=== PATIENT | male | born 1990 | race Caucasian/White ===

== ENCOUNTER 2017-02-03 12:44 | Emergency (ER) | payer OTHER ==
[2017-02-03 13:33] VITALS: RESP 18
--- NOTE | 2017-02-03 13:56 | ED ---
General Adult HPI - General Chief complaint: Psychiatric Symptoms Stated complaint: psych Time Seen by Provider: 02/03/17 13:37 Source: patient, family, RN notes reviewed Mode of arrival: ambulatory Limitations: no limitations - History of Present Illness Initial comments: Patient is a pleasant 26-year-old male presenting to the emergency department for mental health evaluation. Patient has had increased stress recently. Patient originally states he is not depressed however has had several things happen that are upsetting him. Patient has not been sleeping well the past several days. Patient has not had much of an appetite. Patient is hearing chimes or children laughing. Patient sees some spots or shadows at times. Patient does not feel paranoid. Rare alcohol use. Rare marijuana use. No suicidal or homicidal thoughts. No physical complaints. No history of similar symptoms previously. No family history of mental health problems - Related Data Home Medications Medication Instructions Recorded Confirmed No Known Home Medications [No 02/03/17 02/03/17 Known Home Medications] Allergies Allergy/AdvReac Type Severity Reaction Status Date / Time No Known Allergies Allergy Verified 02/03/17 14:09 Review of Systems ROS Statement: Those systems with pertinent positive or pertinent negative responses have been documented in the HPI. ROS Other: All systems not noted in ROS Statement are negative. Constitutional: Denies: fever Eyes: Denies: eye pain ENT: Denies: ear pain Respiratory: Denies: cough Cardiovascular: Denies: chest pain Endocrine: Denies: fatigue Gastrointestinal: Denies: abdominal pain Genitourinary: Denies: dysuria Musculoskeletal: Denies: back pain Skin: Denies: rash Neurological: Denies: weakness Psychiatric: Reports: auditory hallucinations, visual hallucinations Past Medical History Past Medical History: No Reported History History of Any Multi-Drug Resistant Organisms: None Reported Past Surgical History: No Surgical Hx Reported Past Psychological History: No Psychological Hx Reported Smoking Status: Current every day smoker Past Alcohol Use History: Occasional Past Drug Use History: Marijuana General Exam Limitations: no limitations General appearance: alert, in no apparent distress Head exam: Present: atraumatic Eye exam: Present: normal appearance, PERRL ENT exam: Present: normal oropharynx Neck exam: Present: normal inspection Respiratory exam: Present: normal lung sounds bilaterally Cardiovascular Exam: Present: regular rate, normal rhythm GI/Abdominal exam: Present: soft. Absent: tenderness Extremities exam: Present: normal inspection Neurological exam: Present: alert Psychiatric exam: Present: depressed. Absent: homicidal ideation, suicidal ideation Skin exam: Absent: rash Course Vital Signs 02/03/17 13:29 Temperature 98.3 F Pulse Rate 101 H Respiratory 18 Rate Blood Pressure 146/70 O2 Sat by Pulse 100 Oximetry Medical Decision Making - Medical Decision Making Patient was seen by mental health services who will discharge patient and did provide follow-up information. Patient was reevaluated and is comfortable with this. Disposition Clinical Impression: Depression Disposition: HOME SELF-CARE Condition: Stable Instructions: Depression (ED), Stress (ED), Hallucinations (ED) Additional Instructions: Please follow-up with [facility] Sunday as discussed. Please also follow-up with primary care physician. Return for thoughts of harming yourself or others, worsening symptoms or other concerns. Referrals: None,Stated [Primary Care Provider] - 1-2 days Dilip Watson MD [STAFF PHYSICIAN] - 1-2 days Jaime Smith MD [STAFF PHYSICIAN] - 1-2 days Live Brink MD [STAFF PHYSICIAN] - 1-2 days Time of Disposition: 15:18
[2017-02-03 15:46] VITALS: BP 149/77; PULSE 99; TEMP 98.1
== END 2017-02-03 15:46 | disposition home or self-care (01) ==
LOC: EC 12:44
DX: F32.9 Major depressive disorder, single episode, unspecified (principal); F17.200 Nicotine dependence, unspecified, uncomplicated
CPT/HCPCS: 80306; 82075; 99284

== ENCOUNTER 2017-08-06 17:25 | Emergency (ER) | payer OTHER ==
[2017-08-06] MEDS ORDERED: RX INFO: IV CONTRAST WAS GIVEN 1 EACH MISC MISCELLANE PRN (17:34)
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
[2017-08-06 17:53] VITALS: BP 135/83; PULSE 113; RESP 18; TEMP 98
== END 2017-08-06 17:55 | disposition left against medical advice (07) ==
LOC: EC 17:25
DX: R10.9 Unspecified abdominal pain (principal); F17.200 Nicotine dependence, unspecified, uncomplicated; V43.62XA Car passenger injured in collision with other type car in traffic accident, initial encounter; Y92.410 Unspecified street and highway as the place of occurrence of the external cause
CPT/HCPCS: 99284

== ENCOUNTER 2017-10-02 20:20 | Emergency (ER) | payer OTHER ==
[2017-10-02 20:36] VITALS: RESP 18
[2017-10-02] MEDS ORDERED: KETOROLAC 30 MG/ML 1 ML VIAL IM STA (22:34)
--- NOTE | 2017-10-02 22:50 | ED ---
Back Pain HPI - General Chief Complaint: Back Pain/Injury Stated Complaint: slip & fall/blood in urine/back pain Time Seen by Provider: 10/02/17 22:23 Source: patient, RN notes reviewed Limitations: no limitations - History of Present Illness Initial Comments: This is a 27-year-old male who presents to the emergency department with chief complaint of low back injury. Patient states that last night he was walking and slipped on a patch of ice. He states he landed on his back. He denies any head trauma or loss of consciousness. Patient states when he woke up this morning has low back felt stiff. He states he has some pain in the lower region of his back on the left side. He denies any saddle paresthesias or loss of bladder or bowel function. However patient does state that he noticed blood in his urine this morning. Denies fever, chills, chest pain, shortness of breath , abdominal pain, nausea or vomiting, constipation or diarrhea, dysuria, numbness or tingling, headache or vision changes. - Related Data Home Medications Medication Instructions Recorded Confirmed No Known Home Medications [No 02/03/17 10/02/17 Known Home Medications] Allergies Allergy/AdvReac Type Severity Reaction Status Date / Time No Known Allergies Allergy Verified 10/02/17 21:58 Review of Systems ROS Statement: Those systems with pertinent positive or pertinent negative responses have been documented in the HPI. ROS Other: All systems not noted in ROS Statement are negative. Past Medical History Past Medical History: No Reported History History of Any Multi-Drug Resistant Organisms: None Reported Past Surgical History: No Surgical Hx Reported Past Psychological History: Anxiety, Depression Smoking Status: Current every day smoker Past Alcohol Use History: None Reported Past Drug Use History: Marijuana General Exam - General Exam Comments Initial Comments: General: Awake and alert, well-developed; in no apparent distress. HEENT: Head atraumatic, normocephalic. Pupils are equal, round and reactive to light. Extraocular movements intact. Oropharynx moist without erythema or exudate. Neck: Supple. Normal ROM. Cardiovascular: Regular rate and rhythm. No murmurs, rubs or gallops. Chest symmetrical. Respiratory: Lungs clear to auscultation bilaterally. No wheezes, rales or rhonchi. Normal respiratory effort with no use of accessory muscles. Abdomen: Soft, non-tender, non-distended. No rigidity, rebound or guarding. Normal bowel sounds in all 4 quadrants. Back: Patient has normal range of motion. There is tenderness on palpation of left lumbar paraspinal muscles. No SI joint tenderness. Sensation is intact. Pedal pulses are 2+ equal and palpable bilaterally. Musculoskeletal: Normal ROM, no tenderness bilateral upper and lower extremities. Ambulating normally. Skin: [place], warm and dry without rashes or lesions. Neurological: Alert and oriented x3. CN II-XII grossly intact. Speech is fluent and answers are appropriate. No focal neuro deficits. Psychiatric: Normal mood and affect. No overt signs of depression or anxiety noted. Limitations: no limitations Course Vital Signs 10/02/17 10/03/17 20:32 01:17 Temperature 97.6 F 97.9 F Pulse Rate 113 H 77 Respiratory 18 18 Rate Blood Pressure 137/83 113/54 O2 Sat by Pulse 99 97 Oximetry Medical Decision Making - Medical Decision Making This is a 27-year-old male who presented to the emergency department with chief complaint of low back pain. Patient states that he slipped on ice last evening landing on his back. He states that he is experiencing low back pain on the left side. He also states that he had blood in his urine this morning. UA was unremarkable. Lumbar x-ray revealed mild anterior wedging of T12. These findings were discussed with patient and he was in agreement to do further testing with CT of the spine as well as ultrasound of the kidneys and bladder.CT of thoracic and lumbar spine revealed no acute fractures, with mild anterior wedging of T11, T12 and T1 that appear to be nonacute.ultrasound of kidneys and bladder revealed no hydronephrosis or acute abnormalities. Patient will be discharged home with a referral to orthopedics. Findings and plan were discussed with patient who is in agreement and voices understanding. All questions were answered. - Lab Data Lab Results 10/02/17 Range/Units 23:35 Urine Color Light Yellow Urine Appearance Clear (Clear) Urine pH 5.5 (5.0-8.0) Ur Specific [place] 1.006 (1.001-1.035) Urine Protein Negative (Negative) Urine Glucose (UA) Negative (Negative) Urine Ketones Trace H (Negative) Urine Blood Negative (Negative) Urine Nitrite Negative (Negative) Urine Bilirubin Negative (Negative) Urine Urobilinogen <2.0 (<2.0) mg/dL Ur Leukocyte Esterase Negative (Negative) - Radiology Data Radiology results: report reviewed Lumbar spine x-ray impression: Mild anterior wedging of the T12 vertebral body, and perhaps minimal of the L1 vertebral body. Age-indeterminate appearance. Compare to priors if available or could consider CT/MRI CT thoracic, lumbar spine impression: No evidence of acute fracture or malalignment. Minimal anterior wedging of T11, T12 and possibly L1 vertebral bodies may be physiologic. Nonacute. Nonobstructing left renal calculus. Ultrasound kidneys and bladder impression: 1. No hydronephrosis. 2. No stones visualized. Small nonobstructing left renal calculi seen on the recent CT lumbar spine and not identified. Disposition Clinical Impression: Strain of lumbar region, Anterior wedge fracture of vertebra Disposition: HOME SELF-CARE Condition: Good Instructions: Acute Low Back Pain (ED) Additional Instructions: please follow up with orthopedics, Dr. Camarena. Please follow up with primary care provider within 1-2 days. Return to emergency department if symptoms should worsen or any concerns arise. Referrals: None,Stated [Primary Care Provider] - 1-2 days Graeth Camarena MD [STAFF PHYSICIAN] - 1-2 days Time of Disposition: 01:47
--- NOTE | 2017-10-02 23:04 | XR ---
EXAM: XR Lumbar Spine, 2 or 3 Views CLINICAL HISTORY: Reason: fall, lumbar pain TECHNIQUE: Frontal and lateral views of the lumbar spine. COMPARISON: No relevant prior studies available. FINDINGS: Vertebrae: Mild anterior wedging of the T12 vertebral body, and perhaps minimal of the L1 vertebral body. Age indeterminate appearance. Normal alignment. Disc spaces: No acute findings. No significant narrowing. Soft tissues: Unremarkable. IMPRESSION: Mild anterior wedging of the T12 vertebral body, and perhaps minimal of the L1 vertebral body. Age indeterminate appearance. Compare to priors if available or could consider CT/MRI
[2017-10-02 23:55] LABS: Appearance,Urine Clear (Clear); Bilirubin,Urine Negative (Negative); Glucose,Urine (UA) Negative (Negative); Ketones,Urine Trace (Negative); Leukocyte Esterase,Urine Negative (Negative); Nitrite,Urine Negative (Negative); PH, Urine 5.5 (5.0-8.0); Protein,Urine Negative (Negative); Specific Gravity,Urine 1.006 (1.001-1.035); UA Billing (MACRO vs. MICRO) CHEM; Urobilinogen,Urine <2.0 mg/dL (<2.0)
--- NOTE | 2017-10-03 01:06 | CT ---
ADDENDUM - Added by Prateek Mota M.D. on 10/03/2017 1:43 AM (-08:00) Note: Imaging includes T8-L3 vertebral body levels. History: Pain in lower back after falling. Attn: T11-L3. Two nonobstructing left renal calculi. No hydronephrosis. EXAM: CT Lumbar Spine Without Intravenous Contrast CLINICAL HISTORY: Reason: Pain TECHNIQUE: Axial computed tomography images of the lumbar spine without intravenous contrast. CTDI is 18.30 mGy and DLP is 568.20 mGy-cm. This CT exam was performed using one or more of the following dose reduction techniques: automated exposure control, adjustment of the mA and/or kV according to patient size, and/or use of iterative reconstruction technique. COMPARISON: L spine x-ray today. FINDINGS: Vertebrae: Mild anterior wedging of the T11 and T12 vertebral bodies. Nonacute and may be physiologic. Small Schmorl's node associated with inferior, T10, T11 and superior L2 endplates. There may be minimal anterior wedging of the L1 vertebral body. No evidence of acute fracture or malalignment. Discs/spinal canal/neural foramina: No acute findings. No spinal canal stenosis. Soft tissues: Unremarkable. Kidneys and ureters: Nonobstructing left renal calculus IMPRESSION: No evidence acute fracture or malalignment. Minimal anterior wedging of the T11, T12 and possibly L1 vertebral bodies may be physiologic. Nonacute.
[2017-10-03 01:18] VITALS: BP 113/54; PULSE 77; TEMP 97.9
--- NOTE | 2017-10-03 01:41 | US ---
EXAM: US Retroperitoneal Complete, Renal CLINICAL HISTORY: Reason: Pain. LLQ pain hematuria x 1 day TECHNIQUE: Real-time ultrasound of the retroperitoneum (complete) with image documentation. COMPARISON: CT thoracolumbar spine today. FINDINGS: Right kidney: Right kidney 11.1 x 5.1 x 2.5 cm. No stones. No hydronephrosis. Left kidney: Left kidney 11.4 x 6.4 x 5.3 cm. No stones visualized. Small nonobstructing calculi seen on the recent CT L spine not identified. No hydronephrosis. Bladder: Unremarkable as visualized. IMPRESSION: 1. No hydronephrosis. 2. No stones visualized. Small nonobstructing left renal calculi seen on the recent CT L spine not identified
== END 2017-10-03 02:01 | disposition home or self-care (01) ==
LOC: EC 20:20
DX: S22.080A Wedge compression fracture of T11-T12 vertebra, initial encounter for closed fracture (principal); S39.012A Strain of muscle, fascia and tendon of lower back, initial encounter; R31.9 Hematuria, unspecified; F17.200 Nicotine dependence, unspecified, uncomplicated; W00.9XXA Unspecified fall due to ice and snow, initial encounter; Y93.01 Activity, walking, marching and hiking; Y92.89 Other specified places as the place of occurrence of the external cause
CPT/HCPCS: 81003; 87086; 72100; 99283; 96372; J1885; 72128; 72131; 76770

== ENCOUNTER 2017-11-22 03:00 | Emergency (ER) | payer OTHER ==
[2017-11-22] MEDS ORDERED: KETOROLAC 30 MG/ML 1 ML VIAL IVP STA (03:33)
[2017-11-22] MEDS ORDERED: SODIUM CHLORIDE 0.9% 1,000 ML IV STA ×2 (03:33)
[2017-11-22] MEDS ORDERED: ONDANSETRON 4 MG/2 ML VIAL IVP STA (03:33)
[2017-11-22 03:55] LABS: Basophils % (A) 1 %; Eosinophils # (A) 0.1 k/uL (0-0.7); Eosinophils % (A) 2 %; HCT 45.6 % (39.0-53.0); HGB 15.3 gm/dL (13.0-17.5); Lymphocytes # (A) 2.1 k/uL (1.0-4.8); Lymphocytes % (A) 23 %; MCH 30.2 pg (25.0-35.0); MCHC 33.6 g/dL (31.0-37.0); MCV 89.9 fL (80.0-100.0); Mean Platelet Volume 7.1; Monocytes # (A) 0.4 k/uL (0-1.0); Monocytes % (A) 5 %; Neutrophils % (A) 68 %; Platelet Count 243 k/uL (150-450); RBC 5.07 m/uL (4.30-5.90); WBC 8.8 k/uL (3.8-10.6)
[2017-11-22 04:09] LABS: ALT 25 U/L (21-72); AST 13 U/L (17-59); Albumin 4.1 g/dL (3.5-5.0); Alkaline Phosphatase 63 U/L (38-126); Amylase 39 U/L (30-110); Anion Gap 11 mmol/L; Blood Urea Nitrogen 8 mg/dL (9-20); C Reactive Protein <5.0 mg/L (<10.0); Calcium 9.6 mg/dL (8.4-10.2); Carbon Dioxide 25 mmol/L (22-30); Chloride 105 mmol/L (98-107); Glucose 100 mg/dL (74-99); Lipase 31 U/L (23-300); Potassium 3.8 mmol/L (3.5-5.1); Sodium 141 mmol/L (137-145); Total Bilirubin 0.3 mg/dL (0.2-1.3); Total Protein 6.5 g/dL (6.3-8.2)
--- NOTE | 2017-11-22 04:29 | ED ---
Abdominal Pain HPI - General Chief Complaint: Abdominal Pain Stated Complaint: abd pain Time Seen by Provider: 11/22/17 03:24 Source: patient Mode of arrival: ambulatory Limitations: no limitations - History of Present Illness Initial Comments: 27 years old male presenting with diffuse abdominal pain he is unable to point out the most painful area he saying his whole belly hurts been nauseous denies any vomiting and said he has some phlegm denies any fever no chills no diarrhea no constipation and he denies any previous surgeries on his abdomen. Denies any headaches no neck stiffness no chest pain or shortness of breath no signs of any neurological deficit or numbness upper or lower extremities - Related Data Home Medications Medication Instructions Recorded Confirmed No Known Home Medications [No 02/03/17 11/22/17 Known Home Medications] Allergies Allergy/AdvReac Type Severity Reaction Status Date / Time No Known Allergies Allergy Verified 10/02/17 21:58 Review of Systems ROS Statement: Those systems with pertinent positive or pertinent negative responses have been documented in the HPI. ROS Other: All systems not noted in ROS Statement are negative. Past Medical History Past Medical History: No Reported History History of Any Multi-Drug Resistant Organisms: None Reported Past Surgical History: No Surgical Hx Reported Past Psychological History: Anxiety, Depression Smoking Status: Current every day smoker Past Alcohol Use History: Rare Past Drug Use History: Marijuana General Exam - General Exam Comments Initial Comments: General: The patient is awake and alert, in no distress, and does not appear acutely ill. He looks sleepy but GCS is 15 answers questions appropriately Skin: Skin is warm and dry and no rashes or lesions are noted. Eye: Pupils are equal, round and reactive to light, extra-ocular movements are intact; there is normal conjunctiva bilaterally. Ears, nose, mouth and throat: There are moist mucous membranes and no oral lesions. Neck: The neck is supple, there is no tenderness or JVD. Cardiovascular: There is a regular rate and rhythm. No murmur, rub or gallop is appreciated. Respiratory: To auscultation bilateral, no wheezing no rhonchi no distress respiratory stuart noticed Gastrointestinal: Mild slight tenderness all over the abdomen positive bowel sounds no guarding no rebounds no hepatosplenomegaly noticed Back: There is no tenderness to palpation in the midline. There is no obvious deformity. Musculoskeletal: Normal ROM, no tenderness, There is no pedal edema. There is no calf tenderness or swelling. No cords were appreciated. Neurological: CN II-XII intact, Cranial nerves III through XII are intact. There are no obvious motor or sensory deficits. Coordination appears grossly intact. Speech is normal. Psychiatric: Cooperative, appropriate mood & affect, normal judgment. Limitations: no limitations Course Vital Signs 11/22/17 03:17 Temperature 98.6 F Pulse Rate 76 Respiratory 20 Rate Blood Pressure 145/67 O2 Sat by Pulse 99 Oximetry Patient is reassessed at term 5 AM, CBC, CMP, C-reactive protein, KUB are absolutely within normal range these findings were explained to the patient he' ll be discharged home to follow up with his family doctor and is advised to come back if he develops fever chills nausea vomiting or pain gets worse Medical Decision Making - Lab Data Result diagrams: 11/22/17 03:40 11/22/17 03:40 Lab Results 11/22/17 11/22/17 Range/Units 03:40 03:40 WBC 8.8 (3.8-10.6) k/uL RBC 5.07 (4.30-5.90) m/uL Hgb 15.3 (13.0-17.5) gm/dL Hct 45.6 (39.0-53.0) % MCV 89.9 (80.0-100.0) fL MCH 30.2 (25.0-35.0) pg MCHC 33.6 (31.0-37.0) g/dL RDW 13.0 (11.5-15.5) % Plt Count 243 (150-450) k/uL Neutrophils % 68 % Lymphocytes % 23 % Monocytes % 5 % Eosinophils % 2 % Basophils % 1 % Neutrophils # 6.0 (1.3-7.7) k/uL Lymphocytes # 2.1 (1.0-4.8) k/uL Monocytes # 0.4 (0-1.0) k/uL Eosinophils # 0.1 (0-0.7) k/uL Basophils # 0.0 (0-0.2) k/uL Sodium 141 (137-145) mmol/L Potassium 3.8 (3.5-5.1) mmol/L Chloride 105 (98-107) mmol/L Carbon Dioxide 25 (22-30) mmol/L Anion Gap 11 mmol/L BUN 8 L (9-20) mg/dL Creatinine 0.80 (0.66-1.25) mg/dL Est GFR (MDRD) Af Amer >60 (>60 ml/min/1.73 sqM) Est GFR (MDRD) Non-Af >60 (>60 ml/min/1.73 sqM) Glucose 100 H (74-99) mg/dL Calcium 9.6 (8.4-10.2) mg/dL Total Bilirubin 0.3 (0.2-1.3) mg/dL AST 13 L (17-59) U/L ALT 25 (21-72) U/L Alkaline Phosphatase 63 (38-126) U/L C-Reactive Protein <5.0 (<10.0) mg/L Total Protein 6.5 (6.3-8.2) g/dL Albumin 4.1 (3.5-5.0) g/dL Amylase 39 (30-110) U/L Lipase 31 (23-300) U/L Disposition Clinical Impression: Abdominal pain Disposition: HOME SELF-CARE Condition: Good Instructions: Abdominal Pain (ED) Referrals: None,Stated [Primary Care Provider] - 1-2 days
--- NOTE | 2017-11-22 04:58 | XR ---
EXAM: XR Abdomen, 1 View CLINICAL HISTORY: Reason: abdominal pain TECHNIQUE: Frontal supine view of the abdomen/pelvis. COMPARISON: None. FINDINGS: Gastrointestinal tract: Unremarkable. No dilation. Bones/joints: Unremarkable. IMPRESSION: Normal abdominal x-ray.
[2017-11-22 08:14] VITALS: BP 105/49; PULSE 61; RESP 16; TEMP 98.7
== END 2017-11-22 05:43 | disposition home or self-care (01) ==
LOC: EC 03:00
DX: R10.84 Generalized abdominal pain (principal); R40.2412 Glasgow coma scale score 13-15, at arrival to emergency department; R11.0 Nausea; F17.200 Nicotine dependence, unspecified, uncomplicated
CPT/HCPCS: 36415; 80053; 82150; 83690; 85025; 86140; 74018; 99284; 96374; 96375; 96361 ×2; J2405; J1885

== ENCOUNTER 2017-11-22 23:28 | Inpatient (IN) | payer MEDICAID, OTHER ==
[2017-11-23 00:32] LABS: Appearance,Urine Clear (Clear); Bilirubin,Urine Negative (Negative); Blood,Urine Negative (Negative); Color,Urine Yellow; Glucose,Urine (UA) Negative (Negative); Ketones,Urine Trace (Negative); Leukocyte Esterase,Urine Negative (Negative); Nitrite,Urine Negative (Negative); PH, Urine 5.5 (5.0-8.0); Protein,Urine Trace (Negative); Specific Gravity,Urine 1.023 (1.001-1.035)
[2017-11-23 00:45] LABS: Amphetamine Screen,Urine Detected (NotDetected); Barbiturate Screen,Urine Not Detected (NotDetected); Benzodiazepines Screen,Urine Not Detected (NotDetected); Cocaine Screen,Urine Not Detected (NotDetected); Methadone Screen, Urine Not Detected (NotDetected); Opiate Screen,Urine Not Detected (NotDetected); Oxycodone Screen, Urine Not Detected (NotDetected); Phencyclidine Screen,Urine Not Detected (NotDetected); Tricyclic Antidepressant,Urine Not Detected (NotDetected); Urn Cannabinoid Scrn Detected (NotDetected)
[2017-11-23 00:56] LABS: Basophils % (A) 1 %; Eosinophils # (A) 0.2 k/uL (0-0.7); Eosinophils % (A) 2 %; HCT 46.3 % (39.0-53.0); HGB 15.3 gm/dL (13.0-17.5); Lymphocytes # (A) 2.7 k/uL (1.0-4.8); Lymphocytes % (A) 32 %; MCH 30.1 pg (25.0-35.0); MCHC 33.1 g/dL (31.0-37.0); MCV 90.9 fL (80.0-100.0); Mean Platelet Volume 7.1; Monocytes # (A) 0.3 k/uL (0-1.0); Monocytes % (A) 4 %; Neutrophils # (A) 5.1 k/uL (1.3-7.7); Neutrophils % (A) 60 %; Platelet Count 245 k/uL (150-450); RBC 5.09 m/uL (4.30-5.90); RDW 12.9 % (11.5-15.5); WBC 8.5 k/uL (3.8-10.6)
[2017-11-23 01:13] LABS: Anion Gap 9 mmol/L; Blood Urea Nitrogen 7 mg/dL (9-20); C Reactive Protein <5.0 mg/L (<10.0); Calcium 9.4 mg/dL (8.4-10.2); Carbon Dioxide 27 mmol/L (22-30); Chloride 106 mmol/L (98-107); Glucose 92 mg/dL (74-99); Potassium 4.4 mmol/L (3.5-5.1); Sodium 142 mmol/L (137-145)
[2017-11-23] MEDS ORDERED: LORazepam 1 MG TAB PO PRN (03:44)
[2017-11-23] MEDS ORDERED: ACETAMINOPHEN TAB 325 MG TAB PO PRN (03:44)
[2017-11-23] MEDS ORDERED: MAGNESIUM HYDROXIDE 2,400 MG/10 ML CUP PO PRN (03:44)
[2017-11-23] MEDS ORDERED: ZIPRASIDONE 20 MG VIAL IM PRN (03:44)
[2017-11-23] MEDS ORDERED: MAG HYDROX/AL HYDROX/SIMETH 30 ML CUP PO PRN (03:44)
[2017-11-23] MEDS ORDERED: LORazepam 2 MG/ML INJ IM PRN (03:46)
[2017-11-23 04:23] VITALS: BMI 30.3
--- NOTE | 2017-11-23 07:12 | P.PN ---
Progress Note - Text Progress Note Date: 11/23/17 I was notified about new consult around 4 am , nursing staff also added that patient was medicated and currently sleeping in quiet room. I went again to evaluate the patient at 630 am, per nursing staff patient is still sleeping, and medicated and would not be able to provide any meaningful history
[2017-11-23 08:51] LABS: Basophils # (A) 0.1 k/uL (0-0.2); Basophils % (A) 1 %; Eosinophils # (A) 0.2 k/uL (0-0.7); Eosinophils % (A) 3 %; HCT 47.4 % (39.0-53.0); HGB 15.1 gm/dL (13.0-17.5); Lymphocytes # (A) 2.5 k/uL (1.0-4.8); Lymphocytes % (A) 37 %; MCH 29.6 pg (25.0-35.0); MCHC 31.8 g/dL (31.0-37.0); Mean Platelet Volume 7.1; Monocytes # (A) 0.3 k/uL (0-1.0); Monocytes % (A) 4 %; Neutrophils # (A) 3.7 k/uL (1.3-7.7); Neutrophils % (A) 53 %; Platelet Count 240 k/uL (150-450); RBC 5.09 m/uL (4.30-5.90); RDW 13.1 % (11.5-15.5); WBC 6.9 k/uL (3.8-10.6)
[2017-11-23 09:12] LABS: ALT 23 U/L (21-72); AST 13 U/L (17-59); Albumin 3.6 g/dL (3.5-5.0); Alkaline Phosphatase 67 U/L (38-126); Anion Gap 9 mmol/L; Blood Urea Nitrogen 8 mg/dL (9-20); Calcium 9.3 mg/dL (8.4-10.2); Carbon Dioxide 28 mmol/L (22-30); Chloride 107 mmol/L (98-107); Glucose 94 mg/dL (74-99); Potassium 4.1 mmol/L (3.5-5.1); Sodium 144 mmol/L (137-145); Total Bilirubin 0.2 mg/dL (0.2-1.3); Total Protein 5.7 g/dL (6.3-8.2)
[2017-11-23] MEDS: NICOTINE 14MG/24HR PATCH TRANSDERM SCH (09:19)
--- NOTE | 2017-11-23 09:53 | P.HPMEDMHU ---
History of Present Illness H&P Date: 11/23/17 Chief Complaint: Delusions 27 year old male that was brought in by family secondary to delusions, and suicidal ideations. Review of Systems Constitutional: Denies fever, Denies sweats, Denies weakness Ears, nose, mouth and throat: Denies dysphagia, Denies nasal congestion, Denies sinus pressure Cardiovascular: Denies claudication, Denies dyspnea on exertion, Denies orthopnea, Denies rapid heart beat Respiratory: Denies cough, Denies snoring, Denies wheezing Gastrointestinal: Denies BRBPR, Denies coffee ground emesis Musculoskeletal: Denies myalgias, Denies neck stiffness Integumentary: Denies hirsutism, Denies rash Psychiatric: Reports depression, Reports hallucinations, Reports mood swings Hematologic/Lymphatic: Denies easy bruising, Denies lymphadenopathy Allergic/Immunologic: Denies anaphylaxis, Denies urticaria, Denies wheezing Past Medical History Past Medical History: No Reported History Additional Past Medical History / Comment(s): kidney stones History of Any Multi-Drug Resistant Organisms: None Reported Past Surgical History: No Surgical Hx Reported Past Psychological History: Anxiety, Depression Smoking Status: Current every day smoker Past Alcohol Use History: Occasional Past Drug Use History: None Reported Medications and Allergies Home Medications Medication Instructions Recorded Confirmed Type No Known Home Medications [No 02/03/17 11/23/17 History Known Home Medications] Allergies Allergy/AdvReac Type Severity Reaction Status Date / Time No Known Allergies Allergy Verified 11/23/17 04:24 Physical Exam Vitals: Vital Signs Temp Pulse Pulse Resp BP BP Pulse Ox 11/23/17 04:14 98.2 F 94 15 117/80 11/23/17 03:04 97.9 F 82 18 100/54 100 11/22/17 23:32 98.0 F 94 20 160/76 99 Intake and Output 11/22/17 11/23/17 11/23/17 22:59 06:59 14:59 Other: Weight 90.4 kg - EENT Eyes: EOMI, PERRLA - Neck Neck: no lymphadenopathy, normal ROM - Respiratory Respiratory: bilateral: CTA, negative: rales, rhonchi, wheezing - Cardiovascular Heart sounds: normal: S1, S2 - Gastrointestinal General gastrointestinal: normal bowel sounds, no splenomegaly, no tenderness - Neurologic Neurologic: CNII-XII intact - Musculoskeletal Musculoskeletal: gait normal - Psychiatric Psychiatric: A&O x's 3, appropriate affect Cranial Nerve Examination - Cranial Nerves Cranial Nerve II- Optic: Intact Cranial Nerve III- Oculomotor: Intact Cranial Nerve IV- Trochlear: Intact Cranial Nerve V- Trigeminal: Intact Cranial Nerve - Abducens: Intact Cranial Nerve VII- Facial: Intact Cranial Nerve VIII- Auditory: Intact Cranial Nerve IX- Glossopharyngeal: Intact Cranial Nerve X- Vagus: Intact Cranial Nerve XI- Accessory: Intact Cranial Nerve XII- Hypoglossal: Intact Results CBC & Chem 7: 11/23/17 08:28 11/23/17 00:25 Labs: Abnormal Lab Results - Last 24 Hours (Table) 11/22/17 11/23/17 Range/Units 23:50 00:25 BUN 7 L (9-20) mg/dL Urine Protein Trace H (Negative) Urine Ketones Trace H (Negative) Ur Amphetamines Screen Detected H (NotDetected) U Marijuana (THC) Screen Detected H (NotDetected) Assessment and Plan (1) Delusion Current Visit: Yes Status: Acute Code(s): F22 - DELUSIONAL DISORDERS SNOMED Code(s): 8049351 (2) Depression Current Visit: Yes Status: Acute Code(s): F32.9 - MAJOR DEPRESSIVE DISORDER , SINGLE EPISODE, UNSPECIFIED SNOMED Code(s): 57735367
[2017-11-23] MEDS ORDERED: OLANZapine 2.5 MG TAB PO SCH (11:30)
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
[2017-11-23] MEDS ORDERED: OLANZapine ODT 5 MG TAB PO PRN (14:33)
[2017-11-23] MEDS: OLANZapine 5 MG TAB PO SCH (22:24)
[2017-11-23 23:40] LABS: Cholesterol 79 mg/dL (<200); HDL Cholesterol 30 mg/dL (40-60); LDL Cholesterol,Calculated 35 mg/dL (0-99); Triglycerides 70 mg/dL (<150)
[2017-11-24] MEDS: NICOTINE 14MG/24HR PATCH TRANSDERM SCH ×2 (11:21→12:10)
--- NOTE | 2017-11-24 12:38 | P.PN ---
Progress Note - Text interval history: The patient is found in the hallway he follows me to an interview room. He was admitted with acute symptoms of psychosis that are thought to be substance-induced specifically from methamphetamine. He reports using methamphetamine on a nightly basis for an extended period of time. He recognizes he was experiencing hallucinations and paranoid thinking and he states that is resolving. He is experiencing some emotional dysregulation still though. He reports that he slept well last night. He was prescribed Zyprexa 5 mg at bedtime. We discussed the purpose of that medication. Mental status exam: The patient is a male appearing his stated age she is dressed in his own clothing hygiene grooming are adequate. Eye contact is intermittent. He initially maintains a very bland affect for the first part of the session and then experiences a prolonged tearful episode. He states "I put my trust in the wrong people". He then begins speaking about how his life was adversely affected by the of his father. He is reporting no suicidal or homicidal ideation. He is endorsing no current hallucinations he states he feels safe here in the hospital. Insight and judgment limited. He is oriented to person place and date. Plan: We will continue the Zyprexa at bedtime. This will likely be a temporary measure. It appears his symptoms have improved but he is demonstrating some affect lability. He is encouraged to participate in the milieu. He was not open to a discussion regarding treatment for his chemical dependency today. Vital signs reviewed they're within normal limits.
[2017-11-24 13:49] LABS: Hemoglobin A1C 4.7 % (4.0-6.0)
[2017-11-24] MEDS: OLANZapine 5 MG TAB PO SCH (20:58)
[2017-11-25 06:48] VITALS: RESP 18
[2017-11-25] MEDS: NICOTINE 14MG/24HR PATCH TRANSDERM SCH (09:22)
--- NOTE | 2017-11-25 12:29 | P.PN ---
Progress Note - Text Interval history: The patient is found in his room he follows me to an interview room. He has been sleeping most of the morning. It's reported he slept approximate 6 hours last night. He states he is catching up on sleep because "I haven't slept for 6 months" referring to his use of methamphetamine. He continues to comply with medication. He states that family members visited last evening and they were supportive. We discussed the possibility of having him go to inpatient chemical dependency treatment but he states he doesn' t need it as he has the strength to abstain. He is endorsing no hallucinations or delusional thoughts. Mental status exam: The patient is alert he seated calmly he is dressed in his own clothing. He is mildly disheveled. Eye contact is appropriate he is pleasant and cooperative. He is reporting no suicidal or homicidal ideation intent or plan. He is endorsing no auditory or visual hallucinations or any specific delusions. He does not appear to be experiencing symptoms of psychosis during our session. He demonstrates no tangential thinking loose associations or flight of ideas he does not appear hypomanic or manic. Insight and judgment improving. He seems to underestimate the need for formal treatment for his chemical dependency. He demonstrates no verbal or physical aggressiveness. He demonstrates no abnormal involuntary movements. His affect is appropriately expressive including appropriate smiling. Plan: The patient's will continue on the Zyprexa 5 mg at bedtime. This will likely just need to be a temporary measure. He is encouraged to attend some groups. He has been excessively sleeping due to the sleep deficit he built with the use of methamphetamine and because he is not on a stimulant at this time. Vital signs reviewed.
[2017-11-25] MEDS: OLANZapine 5 MG TAB PO SCH (20:29)
[2017-11-26 07:08] VITALS: BP 134/63; PULSE 55; TEMP 97.3
[2017-11-26] MEDS: NICOTINE 14MG/24HR PATCH TRANSDERM SCH (09:41)
--- NOTE | 2017-11-26 12:04 | P.DS ---
Providers Date of admission: 11/23/17 02:40 Expected date of discharge: 11/26/17 Attending physician: Toshia Nolasco MD Consults: 11/23/17 02:49 Consult Physician Routine Consulting Provider: Deedee Rasheed Consult Reason/Comments: medical management Do you want consulting provider notified?: Already Contacted Primary care physician: Stated None Hospital Course: Discharge Diagnosis: Substance-induced psychotic disorder, amphetamine type substance use disorder, moderate severity Reason for Admission: Patient is a 27-year-old male presented to the emergency room with a petition from his sister but stated that he was talking to himself, talking as though he was using the third person and was religiously preoccupied. Patient was also reported to be suicidal. Patient states that he came to the emergency room of his own accord, could not clearly tell me why. He states that he has been tricked into believing he was the "chosen one" feels like he was brainwashed by everyone "to awaken for one". Patient then stated that he needed to sleep a little more. When asked about suicidal ideation he stated that he had suicidal thoughts with a plan "I was sacrificed". Patient states his thoughts of being the chosen one began 3 days ago. He denied having any special sandoval and denied hearing voices, but was unsure if he had heard them in the past. He denied any current suicidal ideation. He states he has not been sleeping well for months and states she has been using methamphetamine on a daily basis for the last 6 months. He states for the last several months he has been seen at [facility] where he was sent by his supply officer after urine drug screen was positive. He reports that he was being seen weekly but cannot tell me when his last visit was. States that he is not on any medication. Patient reports that he is on parole was released from long-term 1 year ago and has 8.5 months left on parole. Patient difficult to interview as he reported he was too tired to answer questions, and was vague in describing his symptoms were endorsing symptoms. Patient states he was living with his mother after his release from long-term but she asked him to leave and when I asked him why he stated because "I scared her, I was telling her wrongs" . Patient states that at the age of 16 he thought of suicide and had placed a gun in his mouth but stopped due to his nephew being in the house. States this was over a broken relationship with a girlfriend. He states that the age of 17 or 18 he and a friend attempted suicide together by hanging, apparently his friends rope broke and his friends saved the patient. He denies that he received any treatment after either one of these episodes. Mental status on Admission: Appearance/Attitude: Patient is dressed in a hospital gown, was in the quiet room when approached stating that he wanted to be there because he "didn't have to hear anyone". Patient made intermittent eye contact and was superficially cooperative. Behavior: Patient did not exhibit any psychomotor agitation or retardation but complained during the interview that he was extremely tired and needed to sleep Speech/Language: Patient's speech was slow, at times needed to repeat his responses because he was speaking soft voice, his responses were coherent but brief Thought Process: Patient was goal-directed but would not elaborate on many responses stating that he needed to sleep to be able to answer better. Is no evidence of loose associations or flight of ideas. Thought Content: Patient stated that he had no visual hallucinations and was unsure whether he was hearing voices in the past or not, he stated he was not currently. Patient states that he feels he is a "chosen one" and feels he has been brainwashed by everyone "to awaken one". Patient would not elaborate further and stated that he needed to sleep a little more before he could discuss this further. Patient states that he has not been sleeping well for the last month and his appetite has been decreased. Reports feeling tired and needing to sleep. Suicidal/Homicidal Ideation: Patient denied any current suicidal or homicidal ideation. Sensorium/Cognition: Patient was alert and oriented to person, place and time and his recent and remote memory appeared grossly intact Mood/Affect: Patient stated his mood was copacetic then stated that he was sad and became tearful because he missed his girlfriend. Insight/Judgment: Patient's insight and judgment are impaired. Hospital Course: Patient was agreeable to signing in on a voluntary basis, routine laboratory studies were ordered and a medical consultation was obtained. Patient was begun on Zyprexa 5 mg at bedtime to target his psychotic symptoms and the patient was compliant. Patient slept a great deal of the time and attended only an occasional group, he reported his appetite improved and that he was feeling more rested. Patient reported that he was no longer having thoughts of being the chosen one, was no longer having any suicidal ideation. Patient reported that he was not having any side effects from the Zyprexa and stated that it improved his sleep, he was no longer having delusional ideation, was no longer hearing voices. Patient stated that he was not interested in inpatient rehab and that [facility]. Patient reported that he was ready to return home to live with his mother. Allergies No Known Allergies Allergy (Verified 11/23/17 04:24) Lab Results 11/22/17 11/23/17 11/23/17 Range/Units 23:50 00:25 00:25 WBC 8.5 (3.8-10.6) k/uL RBC 5.09 (4.30-5.90) m/uL Hgb 15.3 (13.0-17.5) gm/dL Hct 46.3 (39.0-53.0) % MCV 90.9 (80.0-100.0) fL MCH 30.1 (25.0-35.0) pg MCHC 33.1 (31.0-37.0) g/dL RDW 12.9 (11.5-15.5) % Plt Count 245 (150-450) k/uL Neutrophils % 60 % Lymphocytes % 32 % Monocytes % 4 % Eosinophils % 2 % Basophils % 1 % Neutrophils # 5.1 (1.3-7.7) k/uL Lymphocytes # 2.7 (1.0-4.8) k/uL Monocytes # 0.3 (0-1.0) k/uL Eosinophils # 0.2 (0-0.7) k/uL Basophils # 0.0 (0-0.2) k/uL Sodium 142 (137-145) mmol/L Potassium 4.4 (3.5-5.1) mmol/L Chloride 106 (98-107) mmol/L Carbon Dioxide 27 (22-30) mmol/L Anion Gap 9 mmol/L BUN 7 L (9-20) mg/dL Creatinine 0.90 (0.66-1.25) mg/dL Est GFR (MDRD) Af Amer >60 (>60 ml/min/1.73 sqM) Est GFR (MDRD) Non-Af >60 (>60 ml/min/1.73 sqM) Glucose 92 (74-99) mg/dL Estimated Ave Glu mg/dL Hemoglobin A1c (4.0-6.0) % Calcium 9.4 (8.4-10.2) mg/dL Total Bilirubin (0.2-1.3) mg/dL AST (17-59) U/L ALT (21-72) U/L Alkaline Phosphatase (38-126) U/L C-Reactive Protein <5.0 (<10.0) mg/L Total Protein (6.3-8.2) g/dL Albumin (3.5-5.0) g/dL Triglycerides (<150) mg/dL Cholesterol (<200) mg/dL LDL Cholesterol, Calc (0-99) mg/dL HDL Cholesterol (40-60) mg/dL TSH (0.465-4.680) mIU/L Urine Color Yellow Urine Appearance Clear (Clear) Urine pH 5.5 (5.0-8.0) Ur Specific [place] 1.023 (1.001-1.035) Urine Protein Trace H (Negative) Urine Glucose (UA) Negative (Negative) Urine Ketones Trace H (Negative) Urine Blood Negative (Negative) Urine Nitrite Negative (Negative) Urine Bilirubin Negative (Negative) Urine Urobilinogen 2.0 (<2.0) mg/dL Ur Leukocyte Esterase Negative (Negative) Urine Opiates Screen Not Detected (NotDetected) Ur Oxycodone Screen Not Detected (NotDetected) Urine Methadone Screen Not Detected (NotDetected) Ur Propoxyphene Screen Not Detected (NotDetected) Ur Barbiturates Screen Not Detected (NotDetected) U Tricyclic Antidepress Not Detected (NotDetected) Ur Phencyclidine Scrn Not Detected (NotDetected) Ur Amphetamines Screen Detected H (NotDetected) U Methamphetamines Scrn Not Detected (NotDetected) U Benzodiazepines Scrn Not Detected (NotDetected) Urine Cocaine Screen Not Detected (NotDetected) U Marijuana (THC) Screen Detected H (NotDetected) 11/23/17 11/23/17 11/23/17 Range/Units 08:28 08:28 08:28 WBC 6.9 (3.8-10.6) k/uL RBC 5.09 (4.30-5.90) m/uL Hgb 15.1 (13.0-17.5) gm/dL Hct 47.4 (39.0-53.0) % MCV 93.0 (80.0-100.0) fL MCH 29.6 (25.0-35.0) pg MCHC 31.8 (31.0-37.0) g/dL RDW 13.1 (11.5-15.5) % Plt Count 240 (150-450) k/uL Neutrophils % 53 % Lymphocytes % 37 % Monocytes % 4 % Eosinophils % 3 % Basophils % 1 % Neutrophils # 3.7 (1.3-7.7) k/uL Lymphocytes # 2.5 (1.0-4.8) k/uL Monocytes # 0.3 (0-1.0) k/uL Eosinophils # 0.2 (0-0.7) k/uL Basophils # 0.1 (0-0.2) k/uL Sodium 144 (137-145) mmol/L Potassium 4.1 (3.5-5.1) mmol/L Chloride 107 (98-107) mmol/L Carbon Dioxide 28 (22-30) mmol/L Anion Gap 9 mmol/L BUN 8 L (9-20) mg/dL Creatinine 0.93 (0.66-1.25) mg/dL Est GFR (MDRD) Af Amer >60 (>60 ml/min/1.73 sqM) Est GFR (MDRD) Non-Af >60 (>60 ml/min/1.73 sqM) Glucose 94 (74-99) mg/dL Estimated Ave Glu mg/dL 88 Hemoglobin A1c 4.7 (4.0-6.0) % Calcium 9.3 (8.4-10.2) mg/dL Total Bilirubin 0.2 (0.2-1.3) mg/dL AST 13 L (17-59) U/L ALT 23 (21-72) U/L Alkaline Phosphatase 67 (38-126) U/L C-Reactive Protein (<10.0) mg/L Total Protein 5.7 L (6.3-8.2) g/dL Albumin 3.6 (3.5-5.0) g/dL Triglycerides (<150) mg/dL Cholesterol (<200) mg/dL LDL Cholesterol, Calc (0-99) mg/dL HDL Cholesterol (40-60) mg/dL TSH 1.090 (0.465-4.680) mIU/L Urine Color Urine Appearance (Clear) Urine pH (5.0-8.0) Ur Specific [place] (1.001-1.035) Urine Protein (Negative) Urine Glucose (UA) (Negative) Urine Ketones (Negative) Urine Blood (Negative) Urine Nitrite (Negative) Urine Bilirubin (Negative) Urine Urobilinogen (<2.0) mg/dL Ur Leukocyte Esterase (Negative) Urine Opiates Screen (NotDetected) Ur Oxycodone Screen (NotDetected) Urine Methadone Screen (NotDetected) Ur Propoxyphene Screen (NotDetected) Ur Barbiturates Screen (NotDetected) U Tricyclic Antidepress (NotDetected) Ur Phencyclidine Scrn (NotDetected) Ur Amphetamines Screen (NotDetected) U Methamphetamines Scrn (NotDetected) U Benzodiazepines Scrn (NotDetected) Urine Cocaine Screen (NotDetected) U Marijuana (THC) Screen (NotDetected) 11/23/17 Range/Units 08:28 WBC (3.8-10.6) k/uL RBC (4.30-5.90) m/uL Hgb (13.0-17.5) gm/dL Hct (39.0-53.0) % MCV (80.0-100.0) fL MCH (25.0-35.0) pg MCHC (31.0-37.0) g/dL RDW (11.5-15.5) % Plt Count (150-450) k/uL Neutrophils % % Lymphocytes % % Monocytes % % Eosinophils % % Basophils % % Neutrophils # (1.3-7.7) k/uL Lymphocytes # (1.0-4.8) k/uL Monocytes # (0-1.0) k/uL Eosinophils # (0-0.7) k/uL Basophils # (0-0.2) k/uL Sodium (137-145) mmol/L Potassium (3.5-5.1) mmol/L Chloride (98-107) mmol/L Carbon Dioxide (22-30) mmol/L Anion Gap mmol/L BUN (9-20) mg/dL Creatinine (0.66-1.25) mg/dL Est GFR (MDRD) Af Amer (>60 ml/min/1.73 sqM) Est GFR (MDRD) Non-Af (>60 ml/min/1.73 sqM) Glucose (74-99) mg/dL Estimated Ave Glu mg/dL Hemoglobin A1c (4.0-6.0) % Calcium (8.4-10.2) mg/dL Total Bilirubin (0.2-1.3) mg/dL AST (17-59) U/L ALT (21-72) U/L Alkaline Phosphatase (38-126) U/L C-Reactive Protein (<10.0) mg/L Total Protein (6.3-8.2) g/dL Albumin (3.5-5.0) g/dL Triglycerides 70 (<150) mg/dL Cholesterol 79 (<200) mg/dL LDL Cholesterol, Calc 35 (0-99) mg/dL HDL Cholesterol 30 L (40-60) mg/dL TSH (0.465-4.680) mIU/L Urine Color Urine Appearance (Clear) Urine pH (5.0-8.0) Ur Specific [place] (1.001-1.035) Urine Protein (Negative) Urine Glucose (UA) (Negative) Urine Ketones (Negative) Urine Blood (Negative) Urine Nitrite (Negative) Urine Bilirubin (Negative) Urine Urobilinogen (<2.0) mg/dL Ur Leukocyte Esterase (Negative) Urine Opiates Screen (NotDetected) Ur Oxycodone Screen (NotDetected) Urine Methadone Screen (NotDetected) Ur Propoxyphene Screen (NotDetected) Ur Barbiturates Screen (NotDetected) U Tricyclic Antidepress (NotDetected) Ur Phencyclidine Scrn (NotDetected) Ur Amphetamines Screen (NotDetected) U Methamphetamines Scrn (NotDetected) U Benzodiazepines Scrn (NotDetected) Urine Cocaine Screen (NotDetected) U Marijuana (THC) Screen (NotDetected) Discharge Mental Status: Appearance/Attitude: Patient was appropriately dressed , made good eye contact and was cooperative during the interview. Behavior: Patient did not display any psychomotor agitation or retardation. Speech/Language: Patient's speech was spontaneous, normal volume and rhythm and he was coherent. Thought Process: Patient was goal-directed, there is no evidence of any loose associations or flight of ideas. Thought Content: Patient denied any auditory or visual hallucinations and no delusions or paranoid ideation were elicited. Patient stated that the thoughts he had that he was the "chosen one" were not real. Patient stated that he has been sleeping well and his appetite is good. Suicidal/Homicidal Ideation: Patient denied any current suicidal or homicidal ideation. Sensorium/Cognition: Patient is alert and oriented to person, place, and time and his recent and remote memory are grossly intact. Patient states he is able to focus and concentrate. Mood/Affect: patient's mood is euthymic and his affect is appropriate. Insight/Judgment: patient's insight and judgment are fair. Risk Assessment: patient's risk for self-harm is moderate due to his drug use and prior history of suicidal ideation. 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 Patient will continue on Zyprexa 5 mg at bedtime and will be given a prescription for #14 with 1 refill. [facility] of the need for Zyprexa as well as for outpatient substance abuse treatment. Patient and I discussed his use of drugs and I recommended that he avoid the use of any drugs and/or alcohol. Patient Condition at Discharge: Stable Plan - Discharge Summary Discharge Rx Participant: No New Discharge Prescriptions: New OLANZapine [ZyPREXA] 5 mg PO HS #14 tab Discharge Medication List OLANZapine [ZyPREXA] 5 mg PO HS #14 tab 11/26/17 [Rx] Follow up Appointment(s)/Referral(s): [facility] - 11/28/17 9:30 am (Ricco Manley ) None,Stated [Primary Care Provider] - 1 Week Discharge Disposition: HOME SELF-CARE
--- NOTE | 2018-01-15 10:22 | ED ---
Psych HPI - General Chief Complaint: Recheck/Abnormal Lab/Rx Stated Complaint: Groin Pain-Revisit Time Seen by Provider: 11/23/17 00:08 Source: patient Mode of arrival: ambulatory - History of Present Illness Initial Comments: This patient is 27-year-old man who is brought by family to have psychiatric evaluation. The patient has been having increasingly delusional content present his family. He is reportedly sleeping less and not attending to his basic needs. Patient having yazidi delusions. When I interview the patient is not able to provide any additional history due to tangential thought processes. He does display yazidi delusions MD Complaint: suicidal ideation, other -: days(s) Associated Psychiatric Symptoms: racing thoughts, delusions Quality: constant Improves With: none Worsens With: none - Related Data Previous Rx's Medication Instructions Recorded OLANZapine [ZyPREXA] 5 mg PO HS #14 tab 11/26/17 Allergies Allergy/AdvReac Type Severity Reaction Status Date / Time No Known Allergies Allergy Verified 11/23/17 04:24 Review of Systems ROS Statement: Those systems with pertinent positive or pertinent negative responses have been documented in the HPI. ROS Other: All systems not noted in ROS Statement are negative. Limitations: ROS unobtainable due to patients medical condition Respiratory: Denies: cough, dyspnea Cardiovascular: Denies: chest pain Gastrointestinal: Denies: abdominal pain, vomiting Musculoskeletal: Denies: back pain Skin: Denies: rash Neurological: Denies: headache Psychiatric: Reports: anxiety, auditory hallucinations. Denies: homicidal thoughts, suicidal thoughts Past Medical History Past Medical History: No Reported History Additional Past Medical History / Comment(s): kidney stones History of Any Multi-Drug Resistant Organisms: None Reported Past Surgical History: No Surgical Hx Reported Past Psychological History: Anxiety, Depression Smoking Status: Current every day smoker Past Alcohol Use History: Occasional Past Drug Use History: None Reported General Exam Limitations: no limitations General appearance: alert, in no apparent distress Head exam: Present: atraumatic, normocephalic Eye exam: Present: normal appearance Respiratory exam: Present: normal lung sounds bilaterally. Absent: respiratory distress, wheezes, rales, rhonchi, stridor Cardiovascular Exam: Present: regular rate, normal rhythm, normal heart sounds. Absent: systolic murmur, diastolic murmur, rubs, gallop GI/Abdominal exam: Present: soft. Absent: distended, tenderness, guarding, rebound, mass Extremities exam: Present: normal inspection, normal capillary refill. Absent: pedal edema, calf tenderness Back exam: Present: normal inspection. Absent: CVA tenderness (R), CVA tenderness (L) Neurological exam: Present: alert, CN II-XII intact, normal gait. Absent: motor sensory deficit Psychiatric exam: Present: anxious, manic, other (Patient displays disorganized thought processes and delusional thought content.). Absent: agitated, homicidal ideation, suicidal ideation Skin exam: Present: warm, dry, intact, normal color. Absent: rash Course Vital Signs 11/22/17 11/23/17 23:32 03:04 Temperature 98.0 F 97.9 F Pulse Rate 94 82 Respiratory 20 18 Rate Blood Pressure 160/76 100/54 O2 Sat by Pulse 99 100 Oximetry Medical Decision Making - Lab Data Result diagrams: 11/23/17 08:28 11/23/17 08:28 Lab Results 11/22/17 11/23/17 11/23/17 Range/Units 23:50 00:25 00:25 WBC 8.5 (3.8-10.6) k/uL RBC 5.09 (4.30-5.90) m/uL Hgb 15.3 (13.0-17.5) gm/dL Hct 46.3 (39.0-53.0) % MCV 90.9 (80.0-100.0) fL MCH 30.1 (25.0-35.0) pg MCHC 33.1 (31.0-37.0) g/dL RDW 12.9 (11.5-15.5) % Plt Count 245 (150-450) k/uL Neutrophils % 60 % Lymphocytes % 32 % Monocytes % 4 % Eosinophils % 2 % Basophils % 1 % Neutrophils # 5.1 (1.3-7.7) k/uL Lymphocytes # 2.7 (1.0-4.8) k/uL Monocytes # 0.3 (0-1.0) k/uL Eosinophils # 0.2 (0-0.7) k/uL Basophils # 0.0 (0-0.2) k/uL Sodium 142 (137-145) mmol/L Potassium 4.4 (3.5-5.1) mmol/L Chloride 106 (98-107) mmol/L Carbon Dioxide 27 (22-30) mmol/L Anion Gap 9 mmol/L BUN 7 L (9-20) mg/dL Creatinine 0.90 (0.66-1.25) mg/dL Est GFR (MDRD) Af Amer >60 (>60 ml/min/1.73 sqM) Est GFR (MDRD) Non-Af >60 (>60 ml/min/1.73 sqM) Glucose 92 (74-99) mg/dL Calcium 9.4 (8.4-10.2) mg/dL C-Reactive Protein <5.0 (<10.0) mg/L Urine Color Yellow Urine Appearance Clear (Clear) Urine pH 5.5 (5.0-8.0) Ur Specific [place] 1.023 (1.001-1.035) Urine Protein Trace H (Negative) Urine Glucose (UA) Negative (Negative) Urine Ketones Trace H (Negative) Urine Blood Negative (Negative) Urine Nitrite Negative (Negative) Urine Bilirubin Negative (Negative) Urine Urobilinogen 2.0 (<2.0) mg/dL Ur Leukocyte Esterase Negative (Negative) Urine Opiates Screen Not Detected (NotDetected) Ur Oxycodone Screen Not Detected (NotDetected) Urine Methadone Screen Not Detected (NotDetected) Ur Propoxyphene Screen Not Detected (NotDetected) Ur Barbiturates Screen Not Detected (NotDetected) U Tricyclic Antidepress Not Detected (NotDetected) Ur Phencyclidine Scrn Not Detected (NotDetected) Ur Amphetamines Screen Detected H (NotDetected) U Methamphetamines Scrn Not Detected (NotDetected) U Benzodiazepines Scrn Not Detected (NotDetected) Urine Cocaine Screen Not Detected (NotDetected) U Marijuana (THC) Screen Detected H (NotDetected) Disposition Clinical Impression: Delusion, Acute psychosis Disposition: ADMITTED IP TO THIS HOSP Condition: Stable
== END 2017-11-26 14:25 | disposition home or self-care (01) | DRG 897 ==
LOC: EC 23:28 → 3MHU 11-23 02:40
PROVIDERS: ADMIT Psychiatry & Neurology Psychiatry; ATTEND Psychiatry & Neurology Psychiatry
DX: F15.959 Other stimulant use, unspecified with stimulant-induced psychotic disorder, unspecified (principal); F31.9 Bipolar disorder, unspecified; Z65.3 Problems related to other legal circumstances; Z91.5 Personal history of self-harm
CPT/HCPCS: 36415; 80048; 80053; 80061; 80306; 81003; 82075; 83036; 84443; 85025; 86140

== ENCOUNTER 2018-04-22 13:11 | Emergency (ER) | payer OTHER ==
[2018-04-22 13:21] VITALS: RESP 18; TEMP 97.6
[2018-04-22] MEDS ORDERED: DIPH,PERTUS(ACELL)TETVAC-LF 0.5 ML VIAL IM ONE (13:32)
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
--- NOTE | 2018-04-22 14:11 | XR ---
Right knee HISTORY: Right knee pain 3 views of the right knee Bone mineralization, joint spaces and alignment are maintained. No evident joint effusion. IMPRESSION: No acute fracture or dislocation.
[2018-04-22 14:47] VITALS: BP 130/56; PULSE 89
== END 2018-04-22 14:47 | disposition home or self-care (01) ==
LOC: EC 13:11
DX: S20.212A Contusion of left front wall of thorax, initial encounter (principal); S80.211A Abrasion, right knee, initial encounter; S80.212A Abrasion, left knee, initial encounter; F17.200 Nicotine dependence, unspecified, uncomplicated; W18.39XA Other fall on same level, initial encounter; Y93.02 Activity, running
CPT/HCPCS: 99284

== ENCOUNTER 2021-05-15 02:26 | Inpatient (IN) | payer OTHER ==
[2021-05-15] MEDS: HYDROmorphone 1 MG/ML 1 ML SYRINGE IVP STA ×2 (02:41→04:00)
[2021-05-15 02:45] LABS: Basophils # (A) 0.1 k/uL (0-0.2); Basophils % (A) 1 %; Eosinophils # (A) 0.2 k/uL (0-0.7); Eosinophils % (A) 2 %; HCT 44.3 % (39.0-53.0); HGB 15.2 gm/dL (13.0-17.5); Lymphocytes # (A) 2.6 k/uL (1.0-4.8); Lymphocytes % (A) 28 %; MCH 30.3 pg (25.0-35.0); MCHC 34.3 g/dL (31.0-37.0); MCV 88.3 fL (80.0-100.0); Monocytes # (A) 0.2 k/uL (0-1.0); Monocytes % (A) 3 %; Neutrophils # (A) 6.1 k/uL (1.3-7.7); Neutrophils % (A) 66 %; Platelet Count 241 k/uL (150-450); RBC 5.01 m/uL (4.30-5.90); WBC 9.3 k/uL (3.8-10.6)
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
[2021-05-15 02:57] LABS: ALT 22 U/L (4-49); AST 28 U/L (17-59); African American GFR (CKD) >90 (>60 ml/min/1.73 sqM); Albumin 4.8 g/dL (3.5-5.0); Alkaline Phosphatase 79 U/L (38-126); Anion Gap 14 mmol/L; Blood Urea Nitrogen 13 mg/dL (9-20); Calcium 9.3 mg/dL (8.4-10.2); Carbon Dioxide 18 mmol/L (22-30); Chloride 108 mmol/L (98-107); Glucose 107 mg/dL (74-99); Non-African American GFR(CKD) >90 (>60 ml/min/1.73 sqM); Potassium 3.9 mmol/L (3.5-5.1); Sodium 140 mmol/L (137-145); Total Bilirubin 0.2 mg/dL (0.2-1.3); Total Protein 7.2 g/dL (6.3-8.2)
[2021-05-15 02:58] LABS: Prothrombin Time 10.4 sec (9.0-12.0)
[2021-05-15] MEDS ORDERED: DIPH,PERTUS(ACELL)TETVAC-LF 0.5 ML VIAL IM ONE (03:16)
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
[2021-05-15 03:49] LABS: Alcohol 112 mg/dL
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
[2021-05-15] MEDS ORDERED: NALOXONE 0.4 MG/ML 1 ML VIAL IV PRN ×3 (04:03→13:35)
[2021-05-15] MEDS: ACETAMINOPHEN IV (For NPO) 1,000 MG in EMPTY BAG 1 BAG IVPB SCH ×3 (04:35→20:54)
[2021-05-15 06:08] LABS: Appearance,Urine Clear (Clear); Bilirubin,Urine Negative (Negative); Blood,Urine Negative (Negative); Color,Urine Light Yellow; Glucose,Urine (UA) Negative (Negative); Ketones,Urine Negative (Negative); Leukocyte Esterase,Urine Negative (Negative); Nitrite,Urine Negative (Negative); Protein,Urine Negative (Negative); Specific Gravity,Urine 1.038 (1.001-1.035); Urobilinogen,Urine <2.0 mg/dL (<2.0)
[2021-05-15 06:22] LABS: Amphetamine Screen,Urine Detected (NotDetected); Barbiturate Screen,Urine Not Detected (NotDetected); Benzodiazepines Screen,Urine Not Detected (NotDetected); Cocaine Screen,Urine Not Detected (NotDetected); Methadone Screen, Urine Not Detected (NotDetected); Opiate Screen,Urine Detected (NotDetected); Oxycodone Screen, Urine Not Detected (NotDetected); Phencyclidine Screen,Urine Not Detected (NotDetected); Tricyclic Antidepressant,Urine Not Detected (NotDetected); Urn Cannabinoid Scrn Detected (NotDetected)
[2021-05-15] MEDS: HYDROmorphone 1 MG/ML 1 ML SYRINGE IVP PRN ×3 (07:31→20:40)
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
[2021-05-15] MEDS ORDERED: ONDANSETRON 4 MG/2 ML VIAL IVP PRN (09:10)
[2021-05-15] MEDS ORDERED: ceFAZolin 3 GM in SODIUM CHLORIDE 0.9% 100 ML IVPB ONE (09:30)
[2021-05-15] MEDS: HYDROcodone/APAP 5-325MG 1 EACH TAB PO PRN (09:57)
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
[2021-05-15] MEDS: NICOTINE 21MG/24HR PATCH TRANSDERM SCH (10:48)
--- NOTE | 2021-05-15 11:05 | P.PN ---
Progress Note - Text Progress Note Date: 05/15/21 Called to room as pt was about to be transported to the OR for surgical fixation stating that pt wants to leave AMA and does not want to be treated here. I arrived and pt was sitting on side of bed yelling at nursing staff as well as his fiance who is in the room. He states he will not be giving his insurance money to this hospital. He was spoken to by myself, anesthesiology, admin charge as well as security, primary medicine doctor and multiple nurses. He was evaluated due to his belligerence and parties agree that he is able to make decisions. He is refusing care at this time. He is refusing to undergo surgery for his open tibia and fibula fracture. I discussed at length with the patient as well as all other parties involved the risks of this including but not limited to risk of continued bleeding, severe infection, continued damage, loss of limb, loss of life, fracture displacement, fracture non healing, up to and including but not limited to . He states he does not care he wants to leave and go to another facility. He states he thinks his care is delayed. We spent greater than 50 min reasoning, explaining risks and talking with patient about this decision and he still does not want to stay. After extensive deliberation with all treating parties and his fiance as well as contact that he had with his other family members trying to reason with him he will leave AMA. He will be provided the necessary information regarding his fracture, his condition as well as information to the nearest ED for treatment. After this was done, pt then had a change of mind after more talk with his fiance and his mother and now wants surgery. I discussed again with him risks and benefits and they are willing to assume all of these of surgery and understand the limitations. He is still somewhat belligerent and agitated but is willing to undergo the procedure at this time. We will proceed with surgical fixation
[2021-05-15] MEDS ORDERED: DEXAMETHASONE SOD PHOSPHATE 10 MG/ML 1 ML VIAL ONE (11:15)
[2021-05-15] MEDS ORDERED: MIDAZOLAM 2 MG/2 ML VIAL ONE (11:15)
[2021-05-15] MEDS ORDERED: KETAMINE 10 MG/ML 20 ML VIAL ONE (11:15)
[2021-05-15] MEDS ORDERED: LIDOCAINE 1% INJ 10MG/ML (20 ML MDV) ONE (11:15)
[2021-05-15] MEDS ORDERED: SUCCINYLCHOLINE CHLORIDE VIAL 200 MG/10 ML VIAL IV ONE (11:15)
[2021-05-15] MEDS ORDERED: PROPOFOL 10 MG/ML 20 ML VIAL IV ONE (11:15)
[2021-05-15] MEDS ORDERED: ONDANSETRON 4 MG/2 ML VIAL ONE (11:15)
[2021-05-15] MEDS ORDERED: fentaNYL (PF) 50 MCG/ML 2 ML AMP ONE (11:15)
[2021-05-15] MEDS ORDERED: LACTATED RINGERS 1,000 ML IV ONE ×2 (11:18→11:56)
[2021-05-15] MEDS ORDERED: VANCOMYCIN 1,000 MG VIAL MISCELLANE ONE (13:07)
--- NOTE | 2021-05-15 13:13 | FL ---
EXAMINATION TYPE: FL guidance operating room DATE OF EXAM: 05/15/2021 HISTORY: Fluoroscopy time 3 mm and 8 seconds of fluoroscopy provided. IMPRESSION: 1. Fluoroscopy time.
[2021-05-15] MEDS ORDERED: HYDROcodone/APAP 7.5-325MG 1 EACH TAB PO PRN (13:35)
[2021-05-15] MEDS ORDERED: GENTAMICIN PER PHARMACY MISCELLANE SCH (13:45)
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
--- NOTE | 2021-05-15 14:24 | P.PN ---
Progress Note - Text Progress Note Date: 05/15/21 Post OP: Pt s/e. Still tired. VSS waking up. Able to wiggle toes and move hands on command. Cap refill brisk <2 sec all toes RLE. Wiggles RLE toes. Splint CDI. Spoke at length with pts fiance about the fracture and healing times. Pt uses nicotine in several different forms and I stressed to her the importance that he is completely off nicotine clay as it is directly related to bone healing issues. She understood this. I discussed NWB of his RLE in splint. Maintaining splint CDI at all times. Do not get splint wet. Do not submerge. Do not stick anything inside of splint. She expressed that she thinks he will try and leave AMA again after he wakes up and I stressed to her that this is not recommended and that we would recommend he stay one night for pain control as well as to get abx treatment due to open fracture. She understood. We will continue to monitor patient at this time. He will be transferred to the floor once awake and stable per anesthesia and nursing.
[2021-05-15] MEDS ORDERED: GENTAMICIN 600 MG in SODIUM CHLORIDE 0.9% 100 ML IVPB SCH (15:00)
[2021-05-15 15:09] LABS: Basophils % (A) 0 %; Eosinophils % (A) 0 %; HCT 42.5 % (39.0-53.0); HGB 14.3 gm/dL (13.0-17.5); Lymphocytes # (A) 0.9 k/uL (1.0-4.8); Lymphocytes % (A) 9 %; MCH 30.1 pg (25.0-35.0); MCHC 33.7 g/dL (31.0-37.0); MCV 89.5 fL (80.0-100.0); Mean Platelet Volume 7.3; Monocytes # (A) 0.4 k/uL (0-1.0); Monocytes % (A) 3 %; Neutrophils # (A) 8.8 k/uL (1.3-7.7); Neutrophils % (A) 86 %; Platelet Count 205 k/uL (150-450); RBC 4.75 m/uL (4.30-5.90); RDW 13.6 % (11.5-15.5); WBC 10.2 k/uL (3.8-10.6)
[2021-05-15] MEDS: ACETAMINOPHEN TAB 325 MG TAB PO SCH ×2 (15:13→17:48)
--- NOTE | 2021-05-15 19:15 | XR ---
EXAMINATION TYPE: XR tibia fibula RT DATE OF EXAM: 05/15/2021 COMPARISON: Tibia fibula x-ray 05/15/2020 03:18 HISTORY: Trauma, Pain, fracture TECHNIQUE: Intraoperative fluoroscopy was provided by the radiology department at 12 images were subm itted for interpretation. FLUOROSCOPIC TIME: 3 minutes 8 seconds FINDINGS: Redemonstration of comminuted mid diaphysis tibia and fibula fractures with interval placement of int ramedullary kahlil through the tibia with fixation screws proximally and distally. IMPRESSION: Status post intramedullary kahlil placement through the comminuted mid tibia fracture. Redemonstration of comminuted mid fibular fracture. Please see operative report for further details.
[2021-05-15] MEDS ORDERED: SENNOSIDES-DOCUSATE SODIUM 1 EACH TAB PO SCH (21:00)
[2021-05-16] MEDS: ACETAMINOPHEN TAB 325 MG TAB PO SCH ×3 (00:16→12:20)
[2021-05-16] MEDS: HYDROmorphone 1 MG/ML 1 ML SYRINGE IVP PRN ×4 (00:21→15:50)
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
[2021-05-16] MEDS: ACETAMINOPHEN IV (For NPO) 1,000 MG in EMPTY BAG 1 BAG IVPB SCH (04:37)
[2021-05-16] MEDS: HYDROcodone/APAP 5-325MG 1 EACH TAB PO PRN (07:06)
[2021-05-16] MEDS: NICOTINE 21MG/24HR PATCH TRANSDERM SCH (08:53)
[2021-05-16] MEDS ORDERED: ENOXAPARIN 40 MG/0.4 ML SYRINGE SQ SCH (09:00)
[2021-05-16] MEDS ORDERED: NICOTINE 21MG/24HR PATCH TRANSDERM SCH (09:00)
[2021-05-16 09:04] LABS: Basophils # (A) 0.02 X 10*3/uL (0.00-0.10); Basophils % (A) 0.1 %; Eosinophils # (A) 0 X 10*3/uL (0.04-0.35); Eosinophils % (A) 0 %; HCT 38.7 % (39.6-50.0); HGB 13.1 g/dL (13.0-17.0); Lymphocytes # (A) 1.47 X 10*3/uL (0.90-5.00); Lymphocytes % (A) 10.5 %; MCHC 33.9 g/dL (32.0-37.0); MCV 88.6 fL (80.0-97.0); Mean Platelet Volume 10.6 fL (9.5-12.2); Monocytes # (A) 0.84 X 10*3/uL (0.20-1.00); Neutrophils # (A) 11.56 X 10*3/uL (1.80-7.70); Platelet Count 234 X 10*3/uL (140-440); RBC 4.37 X 10*6/uL (4.40-5.60); RDW 13.2 % (11.5-14.5); WBC 13.95 X 10*3/uL (4.50-10.00)
[2021-05-16 09:47] LABS: African American GFR (CKD) 145.7 (60.0-200.0); Anion Gap 6.5 mmol/L (4.00-12.00); BUN/Creat Ratio 14.29 Ratio (12.00-20.00); Carbon Dioxide 24.5 mmol/L (21.6-31.8); Non-African American GFR(CKD) 125.7 (60.0-200.0); Potassium 4.4 mmol/L (3.5-5.5)
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
[2021-05-16] MEDS ORDERED: HYDROcodone/APAP 10-325MG 1 EACH TAB PO PRN (09:51)
[2021-05-16] MEDS ORDERED: GENTAMICIN 150 MG in SODIUM CHLORIDE 0.9% 100 ML IVPB SCH (11:00)
[2021-05-16 15:17] VITALS: BP 136/74; PULSE 67; RESP 17; TEMP 98.1
[2021-05-17] MEDS ORDERED: GENTAMICIN TROUGH DUE 1 EACH MISC MISCELLANE ONE (10:30)
[2021-05-17] MEDS ORDERED: GENTAMICIN PEAK DUE 1 EACH MISC MISCELLANE ONE (13:00)
== END 2021-05-16 16:15 | disposition left against medical advice (07) | DRG 494 ==
LOC: EC 02:26 → 6NMEDSUR 04:03 → OBSVTOIN 05-16 16:08
PROVIDERS: ADMIT Orthopaedic Surgery; ATTEND Orthopaedic Surgery
PROC: 3E0234Z Introduction of Serum, Toxoid and Vaccine into Muscle, Percutaneous Approach (ICD-10-PCS; 2021-05-15)
PROC: 0QSG06Z Reposition Right Tibia with Intramedullary Internal Fixation Device, Open Approach (ICD-10-PCS; principal; 2021-05-15 09:00)
DX: S82.251B Displaced comminuted fracture of shaft of right tibia, initial encounter for open fracture type I or II (principal); S82.451B Displaced comminuted fracture of shaft of right fibula, initial encounter for open fracture type I or II; E66.9 Obesity, unspecified; Z23 Encounter for immunization; F10.129 Alcohol abuse with intoxication, unspecified; Y90.5 Blood alcohol level of 100-119 mg/100 ml; J32.2 Chronic ethmoidal sinusitis; Z53.29 Procedure and treatment not carried out because of patient's decision for other reasons; Z68.35 Body mass index [BMI] 35.0-35.9, adult; F17.200 Nicotine dependence, unspecified, uncomplicated; Z79.899 Other long term (current) drug therapy; Z87.442 Personal history of urinary calculi; Z86.59 Personal history of other mental and behavioral disorders; V29.88XA Motorcycle rider (driver) (passenger) injured in other specified transport accidents, initial encounter; Y92.410 Unspecified street and highway as the place of occurrence of the external cause
CPT/HCPCS: 36415; 70450; 71045; 71260; 72125; 72170; 74177; 80048; 80053; 80170; 80306; 80320; 81003; 83605; 84484; 85025; 85610; 85730; 86850; 86900; 86901; 96365; 96375; 99285

== ENCOUNTER 2021-05-17 13:11 | Emergency (ER) | payer OTHER ==
[2021-05-17 13:25] VITALS: BP 110/67; PULSE 115; RESP 18; TEMP 97.8
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
== END 2021-05-17 14:18 | disposition home or self-care (01) ==
LOC: EC 13:11
DX: S82.401B Unspecified fracture of shaft of right fibula, initial encounter for open fracture type I or II (principal); S82.201B Unspecified fracture of shaft of right tibia, initial encounter for open fracture type I or II; F17.200 Nicotine dependence, unspecified, uncomplicated; Z76.0 Encounter for issue of repeat prescription; V29.40XA Motorcycle driver injured in collision with unspecified motor vehicles in traffic accident, initial encounter; Y92.410 Unspecified street and highway as the place of occurrence of the external cause
CPT/HCPCS: 99282

== ENCOUNTER → 2021-07-18 | Outpatient (CLI) | payer OTHER ==
[2021-07-18 11:04] VITALS: BP 113/66; PULSE 90; RESP 18; TEMP 98.3
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
== END | disposition home or self-care (01) ==
LOC: PNWHC3 10:37
DX: F19.10 Other psychoactive substance abuse, uncomplicated (principal); M79.604 Pain in right leg
CPT/HCPCS: 99211

== ENCOUNTER → 2021-08-25 | Outpatient (CLI) | payer OTHER ==
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
[2021-08-25 13:58] VITALS: BP 119/57; PULSE 82; RESP 18; TEMP 97.5
== END | disposition home or self-care (01) ==
LOC: PNWHC3 13:10
DX: M79.604 Pain in right leg (principal); X58.XXXA Exposure to other specified factors, initial encounter
CPT/HCPCS: 99211

== ENCOUNTER 2022-10-02 17:10 | Inpatient (IN) | payer MEDICAID, OTHER ==
[2022-10-02] MEDS ORDERED: LORazepam 1 MG TAB PO STA (19:56)
[2022-10-02 20:11] LABS: Amphetamine Screen,Urine Not Detected (NotDetected); Barbiturate Screen,Urine Not Detected (NotDetected); Benzodiazepines Screen,Urine Not Detected (NotDetected); Cocaine Screen,Urine Not Detected (NotDetected); Methadone Screen, Urine Not Detected (NotDetected); Opiate Screen,Urine Not Detected (NotDetected); Oxycodone Screen, Urine Not Detected (NotDetected); Phencyclidine Screen,Urine Not Detected (NotDetected); Tricyclic Antidepressant,Urine Detected (NotDetected); Urn Cannabinoid Scrn Detected (NotDetected)
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
[2022-10-03] MEDS ORDERED: HALOPERIDOL LACTATE 5 MG/ML 1 ML VIAL IM PRN (00:03)
[2022-10-03] MEDS ORDERED: LORazepam 1 MG TAB PO PRN (00:03)
[2022-10-03] MEDS ORDERED: MAG HYDROX/AL HYDROX/SIMETH 355 ML BOTTLE PO PRN (00:03)
[2022-10-03] MEDS ORDERED: haloperidoL 5 MG TAB PO PRN (00:06)
[2022-10-03] MEDS ORDERED: LORazepam 2 MG/ML INJ IM PRN (00:06)
[2022-10-03 02:23] VITALS: BP 112/63; PULSE 69; RESP 18; TEMP 97.5
[2022-10-03] MEDS ORDERED: ACETAMINOPHEN TAB 325 MG TAB PO PRN (04:00)
[2022-10-03] MEDS ORDERED: MAGNESIUM HYDROXIDE 2,400 MG/10 ML CUP PO PRN (09:00)
[2022-10-03] MEDS: NICOTINE 14MG/24HR PATCH TRANSDERM SCH (10:45)
--- NOTE | 2022-10-03 15:09 | P.HP ---
Psychiatric H&P - . History & Physical: Allergies Allergy/AdvReac Type Severity Reaction Status Date / Time No Known Allergies Allergy Verified 10/02/22 22:02 Vital Signs Temp 97.5 F L 10/03/22 02:18 Pulse 69 10/03/22 02:18 Resp 18 10/03/22 02:18 BP 112/63 10/03/22 02:18 Pulse Ox 97 10/03/22 02:18 FiO2 Intake & Output 10/02/22 10/03/22 10/03/22 18:59 06:59 18:59 Weight 77.111 kg 96.615 kg Laboratory Last Values Urine Opiates Screen Not Detected (NotDetected) 10/02/22 19:12 Ur Oxycodone Screen Not Detected (NotDetected) 10/02/22 19:12 Urine Methadone Screen Not Detected (NotDetected) 10/02/22 19:12 Ur Propoxyphene Screen Not Detected (NotDetected) 10/02/22 19:12 Ur Barbiturates Screen Not Detected (NotDetected) 10/02/22 19:12 U Tricyclic Antidepress Detected (NotDetected) H 10/02/22 19:12 Ur Phencyclidine Scrn Not Detected (NotDetected) 10/02/22 19:12 Ur Amphetamines Screen Not Detected (NotDetected) 10/02/22 19:12 U Methamphetamines Scrn Not Detected (NotDetected) 10/02/22 19:12 U Benzodiazepines Scrn Not Detected (NotDetected) 10/02/22 19:12 Urine Cocaine Screen Not Detected (NotDetected) 10/02/22 19:12 U Marijuana (THC) Screen Detected (NotDetected) H 10/02/22 19:12 Coronavirus (PCR) Not Detected (Not Detectd) 10/02/22 22:49 10/03/22 14:35 - General Chief Complaint: Psychiatric Symptoms Stated Complaint: Mental Health Time Seen by Provider: 10/02/22 17:58 Source: patient Mode of arrival: ambulatory - History of Present Illness Initial Comments: This 32-year-old male presents with family with the complaint of some auditory hallucinations. He states that he has not been able to sleep. He feels anxious. He has a history of similar previously when he was utilizing methamphetamines but denies utilizing any methamphetamines for the last 1-1/2 years. These symptoms have been going on for the past couple of weeks. He has not slept much over the past several days. He states that his psychiatric medications have not been helping much. He denies any current medical issues. No other modifying factors. He denies any other drugs or alcohol. Family is present and do relate a history of schizophrenia. - Related Data Home Medications Medication Instructions Recorded Confirmed Amitriptyline HCl [Elavil] 25 mg PO HS 10/02/22 10/02/22 Allergies Allergy/AdvReac Type Severity Reaction Status Date / Time No Known Allergies Allergy Verified 10/02/22 22:02 Review of Systems ROS Statement: Those systems with pertinent positive or pertinent negative responses have been documented in the HPI. ROS Other: All systems not noted in ROS Statement are negative. Past Medical History Past Medical History: COPD Additional Past Medical History / Comment(s): kidney stone. rt leg pain History of Any Multi-Drug Resistant Organisms: None Reported Past Surgical History: No Surgical Hx Reported Additional Past Surgical History / Comment(s): rt leg surgery with kahlil and screws Past Anesthesia/Blood Transfusion Reactions: No Reported Reaction Past Psychological History: Anxiety, Depression, PTSD Smoking Status: Current every day smoker Past Alcohol Use History: None Reported Past Drug Use History: None Reported, Marijuana - Past Family History Mother Family Medical History: No Reported History General Examhe he - General Exam Comments Initial Comments: GENERAL: The patient is well nourished and well hydrated. VITAL SIGNS: Heart rate, blood pressure, respiratory rate reviewed as recorded in nurse's notes. EYES: Pupils are round and reactive. Extraocular movements are intact. No conjunctival / lid redness or swelling. ENT: No external evidence of injury, swelling, or ecchymosis. Airway is patent. Throat is clear. NECK: Nontender. No swelling or evidence of injury. No subcutaneous emphysema. Trachea is midline. No thyroid mass. HEART: Regular rate and rhythm. Good peripheral pulses. LUNGS/CHEST: Breath sounds clear and equal bilaterally. No rales, rhonchi, or wheezes. No ecchymosis, subcutaneous emphysema, or tenderness. ABDOMEN: Abdomen soft without tenderness. No palpable masses or organomegaly. No peritoneal signs. No abdominal wall swelling or ecchymosis. EXTREMITIES: No extremity tenderness. Normal muscle tone and function. No thoracolumbar tenderness. NEUROLOGIC: Sensation is grossly intact. Cranial nerve exam reveals face is symmetrical, tongue is midline, speech is clear. SKIN: No abrasions or ecchymosis is noted. No induration or masses noted. PSYCHIATRIC: Alert and oriented. Appears anxious at times. Limitations: no limitations Course Vital Signs 10/02/22 17:50 Temperature 98.2 F Pulse Rate 102 H Respiratory 20 Rate Blood Pressure 118/72 O2 Sat by Pulse 98 Oximetry Medical Decision Making - Medical Decision Making The patient was seen and examined. All diagnostics are reviewed. The breath alcohol test and urine drug screen are ordered. This felt as though he is medically cleared for further psychiatric evaluation. The urine drug screen came back for tricyclic antidepressants and marijuana. Patient does admit to utilizing marijuana. He was just started on amitriptyline 3 days ago. He is evaluated by the psychiatric nurse and she relates that they're planning to admit him to the hospital for further treatment. PSYCHIATRIC h/p CONDUCTED on 2021 in the [facility] by Me (dr Dakota Constantino) in [facility] room. His history was briefly reviewed as entered by Dr. Gutierrez who first the patient at the [facility]. I attempted to interview the patient face to face but was found himsefl ot be somewhat drowsy and unprepared to communicate when he was seen in his bedroom . He was fully alert but failed to provide a full history. He apparently has been living in the prison and admission blood work revealed his urine was tested positive for THC. He apparently was prescribed Tricyclic amitryptyline 25 mg : the health care provider would have to be verified. Chief Complaint feeling paranoid. HPI I have been unable during the 1st day of his admission to find collateral information regarding his past. He did not talk about his use of Cannabis or Crystal MDMA in contrast to the [facility] interview when he admitted he was absuing or using Crystal MET (methamphetamine) for apparently recreational purposes. In the face of positive Cannabis in his urine, he continued to deny he ever used cannnabis in his daily routine. later on , he admitted he did not harbor any suicidal or homicidal ideation . He did not elaborate much on his THC Cannabis use as linked to his paranoid ideations towards the residents in the home. He cited this was the major reason for his major admisson which was unrelated to hi s suicidal or homicidal ideation. HE earlier admitted to auditory hallucinations but today did not talk much about his auditory hallucinations He did not target certain groups of people for his parnanoid ideas of reference or delusion. No history og grandiose delusions or hypomnanci episodes. He did not want to further interview during his first encounter. 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 However, we did not have his community mental health notes or any of his previous psyhiatric encounteres at the community level in the [facility] area. He did not expand whether he used medicinal cannabis or recreational cannabis and did not see substance use as the major culprit for his psychiatric decompensation . He blocked out further attempts to inquire the contexual issuse o [facility] prison placement in the [place] area. Past Medical history and System review As indicated in the admission note, he may have a history of smoking related COPD . his cigarette consumption was to be further examined. He was reported to have MSK surgery : it is uncertain whether this was related to accidental injury of his leg trauma requiring internal fixation with screws. degenerative MSK system. He did not report any lower back pain related to CVA -renal origin. Past psychosocial history: We will waiti until next session to further explore the lack of social support . He did not appear to have steady empployment. mental status examin. He was of moderate build and was seen lying in bed. He was arousable and greeted the health Care provider appropriately. He responded to questions in a yes and no and was found to drowsy at times. Most likely he wasd admitted late ib Sep, and completed the urine blood test investigations. his speech was audible and soft toned : with minimal pschoomotor retardation.No pressured speech. affect: Constricted in range, somewhat guarded . Perceptual : he denied hallucinations or visual disturbances. He did not admit to any suicidal or homicidal ideation s. Cognition> he was oriented x 3 spheres. 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 detailed assessment of his substance use : repeated urine toxicology and collateral information from prison and friends 2. engage pt to seek reduced or abstinence 3. he would benefit from starting on low dosage of antipsychotic tomorrow to manage his recurrence of his psychosis 4. Life style and social support would be explored to engage him toward recovery 5. Relapse prevention : he would be encouraged to seek substance treatment program in the community
[2022-10-03] MEDS ORDERED: AMITRIPTYLINE HCL 25 MG TAB PO SCH (21:00)
[2022-10-04 08:16] LABS: Basophils # (A) 0.1 k/uL (0-0.2); Basophils % (A) 1 %; Eosinophils # (A) 0.2 k/uL (0-0.7); Eosinophils % (A) 2 %; HCT 46.8 % (39.0-53.0); HGB 15.6 gm/dL (13.0-17.5); Lymphocytes % (A) 30 %; MCH 30.5 pg (25.0-35.0); MCHC 33.3 g/dL (31.0-37.0); MCV 91.4 fL (80.0-100.0); Mean Platelet Volume 8.2; Monocytes # (A) 0.3 k/uL (0-1.0); Monocytes % (A) 5 %; Neutrophils # (A) 4.1 k/uL (1.3-7.7); Neutrophils % (A) 61 %; Platelet Count 221 k/uL (150-450); RBC 5.12 m/uL (4.30-5.90); RDW 12.7 % (11.5-15.5); WBC 6.6 k/uL (3.8-10.6)
[2022-10-04 08:33] LABS: ALT 34 U/L (4-49); AST 25 U/L (17-59); African American GFR (CKD) >90 (>60 ml/min/1.73 sqM); Albumin 4.4 g/dL (3.5-5.0); Alkaline Phosphatase 63 U/L (38-126); Anion Gap 5 mmol/L; Blood Urea Nitrogen 13 mg/dL (9-20); Carbon Dioxide 30 mmol/L (22-30); Chloride 105 mmol/L (98-107); Glucose 92 mg/dL (74-99); Non-African American GFR(CKD) >90 (>60 ml/min/1.73 sqM); Potassium 4.2 mmol/L (3.5-5.1); Sodium 140 mmol/L (137-145); Total Bilirubin 0.6 mg/dL (0.2-1.3); Total Protein 6.6 g/dL (6.3-8.2)
[2022-10-04] MEDS: NICOTINE 14MG/24HR PATCH TRANSDERM SCH (10:43)
--- NOTE | 2022-10-04 12:00 | P.DS ---
Providers Date of admission: 10/03/22 00:00 Discharge summary He was admitted to psychatric unit from [facility] I assumed his psychaitric care for to 2021. He presented with a longstanding history of Cannabis use disorder to get high. He did not see his cannabis use as his source of impairment. He admitted at the [facility]. he has been "paranoid all his life": on further inquiry, he started using cannabis at an early age. He understood that cannabis can induce psychosis at the Intoxication stage" when cannnabis use was in excess. He was laughing see ybarra when I interviewed him: later on , be became more somber and talked about how he became suspicious of peop He was not prepared at the present stage to be serious about signing himself to [facility] or formal addiction treatment program. He understood that his presentation fitted the criterria of psychosis NOS or cannnabis-related psychosis with paranoid delusions as his core symptom. In addition, he complained of his insomnia. He had redcued his caffeine intake to 2-3 cups during the daytime. but when he was using cannabis regularly he would go for many nights with deprived sleep. He claimed that he could continue to work . and to have a reasonable relationship with his fiancee . He even mentioned he has to rpovide care for his "child" through the relationship. Goal of abstinence was discussed at 3 sessions but he contineud to vacillate between fworking towards reduced cannabis and continued use. I explained to him amitryptyline would not reduce his paranoid ideas of refernce or delusion. He agreed to be started on zyprexa 2.5 mg po qhs to be folllowed by his PCP and at the psychiatric addiction clinic upon discharge. He went through the dperiod of brief hospitalizaiton uneventfully with no further disruptive incident. He did not endorse hallucinations MSE upon discharge; lucid coherent, speech normal no pressures however, labile affect was evident : guarded at times followed by his anxious affect. Paranoid ideas of refernce persisted. even though he did not have plans of acting upon. No suicidal or homicidal ideation. No hallucinations. Cognition: oriented. insight was marginal terms of his understanding of his goal of cannabis use. Discharge planning 1. 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 SUKUMAR: pasat history of MDMA Cyrstal METH. in remission secondary diagnosis : cannabis use disorder moderate severity. 2. Family suppport. He stated his relationship with his fiancee has been congenial and conducive towards his recovery. 3. Rx: he agreed to start on olanzapine 2.5 mg po qhs x 30 days. Rx given at discharge 4. He agrreed to contact addiction treatment and psychiatric centers at his choice for follow up. Expected date of discharge: 10/04/22 Attending physician: Denys Fox MD Consults: 10/03/22 00:03 Consult Physician Routine Consulting Provider: Brayan Velazquez Consult Reason/Comments: H&P and medical Do you want consulting provider notified?: Yes, Notify in am Primary care physician: Brayan Velazquez MD Patient Condition at Discharge: Fair Plan - Discharge Summary New Discharge Prescriptions: Discontinued Amitriptyline HCl [Elavil] 25 mg PO HS Activity/Diet/Wound Care/Special Instructions: Avoid the use of street drugs and alcohol. Take all prescriptions as prescribed. When you are in need of refills on your medications, please contact your medical provider and/or outpatient psychiatrist to have this done. Please go to scheduled outpatient appointment for aftercare treatment. If symptoms return or become worse, call the crisis line at and/or go to the nearest emergency room for evaluation
[2022-10-04 16:01] LABS: Chol/HDL Ratio 3.18 Ratio; LDL Cholesterol,Calculated 60.7 mg/dL (0.0-131.0)
== END 2022-10-04 14:45 | disposition home or self-care (01) | DRG 897 ==
LOC: EC 17:10 → 3MHU 10-03
PROVIDERS: ADMIT Psychiatry & Neurology Psychiatry; ATTEND Psychiatry & Neurology Psychiatry
DX: F12.159 Cannabis abuse with psychotic disorder, unspecified (principal); J44.9 Chronic obstructive pulmonary disease, unspecified; Z87.442 Personal history of urinary calculi; F15.10 Other stimulant abuse, uncomplicated; F15.159 Other stimulant abuse with stimulant-induced psychotic disorder, unspecified; F17.210 Nicotine dependence, cigarettes, uncomplicated; F41.9 Anxiety disorder, unspecified; F43.10 Post-traumatic stress disorder, unspecified; F32.A Depression, unspecified; Z20.822 Contact with and (suspected) exposure to COVID-19; Z71.51 Drug abuse counseling and surveillance of drug abuser; Z71.6 Tobacco abuse counseling
CPT/HCPCS: 80053; 80061; 80306; 82075; 83036; 84443; 85025; 87635; 99285